=== PATIENT | female | born 1975 | race African-American/Black ===

== ENCOUNTER 2018-12-01 22:13 | Emergency (ER) | payer OTHER ==
[~2018-12-01] VITALS: Ht 167.6 cm; Wt 89.9 kg
[2018-12-02] MEDS ORDERED: IBUPROFEN 600MG TABLET PO ONE (00:45)
[2018-12-02 01:44] VITALS: BP 127/82
== END 2018-12-02 01:47 | disposition home or self-care (01) ==
LOC: ER 22:13
DX: N75.0 Cyst of Bartholin's gland (principal); Z90.710 Acquired absence of both cervix and uterus; Z90.49 Acquired absence of other specified parts of digestive tract
CPT/HCPCS: 99283

== ENCOUNTER 2019-03-12 15:10 | Emergency (ER) | payer OTHER ==
[~2019-03-12] VITALS: Ht 167.6 cm; Wt 81.0 kg
[2019-03-12] MEDS ORDERED: MAGNESIUM/ALUMINUM HYDROXIDE/SIMETHICONE 30ML UDC PO ONE (18:00)
[2019-03-12] MEDS ORDERED: FAMOTIDINE 20MG TABLET PO ONE (18:00)
[2019-03-12 18:07] VITALS: BP 154/84
[2019-03-12 18:52] LABS: BASOPHILS % 0.9 % (0.0-2.0); HEMATOCRIT. 39.3 % (36.0-48.0); HEMOGLOBIN. 13.3 g/dL (12.0-16.0); LYMPHOCYTES % 27.8 % (20.0-50.0); MEAN CORPUSCULAR HEMOGLOBIN 28.3 pg (28.0-32.0); MEAN CORPUSCULAR VOLUME 83.9 fL (81.0-99.0); MEAN PLATELET VOLUME 7.4 fl (7.4-10.4); MONOCYTES % 6.4 % (2.0-8.0); NEUTROPHILS % 61.9 % (40.0-76.0); PLATELET 304 x1000/uL (130-400); RED BLOOD CELL COUNT 4.69 mill/uL (4.2-5.4); RED CELL DISTRIBUTION WIDTH 13.2 % (11.6-14.6)
[2019-03-12 18:55] LABS: CHLORIDE 106 mEq/L (98-107)
[2019-03-12 18:58] LABS: HCG SCREEN NEGATIVE
[2019-03-12 18:59] LABS: ETHANOL BLOOD < 10 mg/dL
[2019-03-12] MEDS ORDERED: IBUPROFEN 800MG TABLET PO ONE (19:15)
== END 2019-03-12 20:05 | disposition home or self-care (01) ==
LOC: ER 15:10
DX: K21.9 Gastro-esophageal reflux disease without esophagitis (principal); R07.89 Other chest pain; Z90.710 Acquired absence of both cervix and uterus; Z90.89 Acquired absence of other organs
CPT/HCPCS: 36415; 71045; 80320; 83880; 84484; 84703; 93005; 99284; G0480

== ENCOUNTER 2021-10-18 23:12 | Emergency (ER) | payer OTHER ==
[~2021-10-18] VITALS: Ht 167.6 cm; Wt 94.0 kg
[2021-10-18 23:30] VITALS: BP 146/88
[2021-10-19 00:22] LABS: BASOPHILS % 0.5 % (0.0-2.0); EOSINOPHILS % 2.8 % (0.0-5.0); HEMATOCRIT. 37.1 % (36.0-48.0); HEMOGLOBIN. 12.4 g/dL (12.0-16.0); LYMPHOCYTES % 31.8 % (20.0-50.0); MEAN CORPUSCULAR HEMOGLOBIN 28.2 pg (28.0-32.0); MEAN CORPUSCULAR VOLUME 84.2 fL (81.0-99.0); MEAN PLATELET VOLUME 7.2 fl (7.4-10.4); MONOCYTES % 5.9 % (2.0-8.0); PLATELET 275 x1000/uL (130-400); RED BLOOD CELL COUNT 4.41 mill/uL (4.2-5.4); RED CELL DISTRIBUTION WIDTH 13.5 % (11.6-14.6)
[2021-10-19 00:27] LABS: CHLORIDE 105 mEq/L (98-107)
== END 2021-10-19 08:00 | disposition home or self-care (01) ==
LOC: ER 23:12
DX: R07.89 Other chest pain (principal); I10 Essential (primary) hypertension; Z90.710 Acquired absence of both cervix and uterus
CPT/HCPCS: 36415; 71045; 80053; 84484; 85025; 93005; 99285